=== PATIENT | female | born 1975 | race Caucasian/White ===

== ENCOUNTER 2020-03-24 19:49 | Emergency (ER) | payer SELFPAY | END 2020-03-24 20:31 | disposition left against medical advice (07) | LOC: ER 19:49 | DX: M54.9 Dorsalgia, unspecified (principal); Z53.21 Procedure and treatment not carried out due to patient leaving prior to being seen by health care provider ==

== ENCOUNTER 2020-09-16 12:09 | Emergency (ER) | payer SELFPAY ==
[~2020-09-16] VITALS: Ht 167.6 cm; Wt 95.4 kg
[2020-09-16 13:09] LABS: BILIRUBIN,URINE NEGATIVE (NEG); CLARITY,URINE CLOUDY; COLOR,URINE YELLOW; NITRITE,URINE NEGATIVE (NEG); PROTEIN,URINE NEGATIVE (NEG-TRACE)
--- NOTE | 2020-09-16 13:12 | PHYS DOC ---
General Adult EDM: Chief Complaint: NAUSEA/VOMITING/DIARRHA HPI: HPI: Patient is a 45 year old female who presents with patient's states that at 5:00 this morning he heard her finger up against the wall next to him he rolled over and she was moving her extremities and he went to pull her towards him and she did not respond to wake up. Patient states she has never had a seizure before. Patient claims that her tongue hurts and may have bitten her tongue. Patient states ever since she has had nausea and vomiting. She denies any blood in her vomit. Patient denies fever, abdominal pain, cough, shortness of breath, chest pain, dizziness, headache, syncope, body aches, vision change, focal weakness, numbness or tingling. She states that she does smoke and she does use marijuana. She states she has not recently used any alcohol or taken any other drugs. She denies any other medical history. Patient is vomiting bile in the ED. Rates her tongue pain a 7 out of 10. Review of Systems: Review of Systems: Constitutional: Denies fever or chills. [] Eyes: Denies change in visual acuity. [] HENT: Denies nasal congestion or sore throat. + Tongue pain [] Respiratory: Denies cough or shortness of breath. [] Cardiovascular: Denies chest pain or edema. [] GI: Denies abdominal pain. + nausea, +vomiting, denies bloody stools or diarrhea. [] : Denies dysuria. [] Musculoskeletal: Denies back pain or joint pain. [] Integument: Denies rash. [] Neurologic: Denies headache, focal weakness or sensory changes. + Seizure-like activity [] Endocrine: Denies polyuria or polydipsia. [] Lymphatic: Denies swollen glands. [] Psychiatric: Denies depression or anxiety. [] Heart Score: Risk Factors: Risk Factors: DM, Current or recent (<one month) smoker, HTN, HLP, family history of CAD, obesity. Risk Scores: Score 0 - 3: 2.5% MACE over next 6 weeks - Discharge Home Score 4 - 6: 20.3% MACE over next 6 weeks - Admit for Clinical Observation Score 7 - 10: 72.7% MACE over next 6 weeks - Early Invasive Strategies Allergies: Allergies: Allergies Coded Allergies Type Severity Reaction Last Updated Verified Penicillins Allergy Unknown 09/16/20 Yes Physical Exam: PE: Constitutional: Well developed, well nourished, no acute distress, non-toxic appearance. [] HENT: Normocephalic, atraumatic, bilateral external ears normal, oropharynx moist, no oral exudates, nose normal. Some redness to the tongue but no swelling. No laceration to the tongue. [] Eyes: PERRLA, EOMI, conjunctiva normal, no discharge. [] Neck: Normal range of motion, no tenderness, supple, no stridor. [] Cardiovascular:Heart rate regular rhythm, no murmur [] Lungs & Thorax: Bilateral breath sounds clear to auscultation [] Abdomen: Bowel sounds normal, soft, no tenderness, no masses, no pulsatile masses. [] Skin: Warm, dry, no erythema, no rash. [] Back: No tenderness, no CVA tenderness. [] Extremities: No tenderness, no cyanosis, no clubbing, ROM intact, no edema. [] Neurologic: Alert and oriented X 3, normal motor function, normal sensory fun ction, no focal deficits noted. [] Psychologic: Affect normal, judgement normal, mood normal. [] EKG: EK and read by Dr. Connelly as sinus rhythm and no STEMI [] Radiology/Procedures: Radiology/Procedures: [] Impression: [facility] [address] [facility] [place] [address] IMAGING REPORT Signed PATIENT: OSWALD ORLANDO ACCOUNT: [id number] : 1975 LOCATION: ER AGE: 45 SEX: F EXAM STATUS: PRE ER ORD. PHYSICIAN: TAYLOR CORDOVA APRN REASON: vomiting PROCEDURE: PORTABLE CHEST 1V INDICATION: Reason: vomiting / Spl. Instructions: / History: COMPARISON: None. FINDINGS: Single view of chest obtained. No focal airspace consolidation or pulmonary edema. There are some calcified lymph nodes in the mediastinum which could be from chronic granulomatous disease. No definite focal airspace consolidation or pulmonary edema. IMPRESSION: * No focal airspace consolidation or edema. Electronically signed by: Amaris Spann MD (09/16/2020 1:47 PM) [id number] DICTATED and SIGNED BY: AMARIS SPANN MD DATE: 09/16/20 [id number] [facility] [address] [place] [address] IMAGING REPORT Signed PATIENT: OSWALD ORLANDO ACCOUNT: [id number] : 1975 LOCATION: ER AGE: 45 SEX: F EXAM STATUS: REG ER ORD. PHYSICIAN: TAYLOR CORDOVA APRN REASON: vomiting, FRONTAL HEADACHE, SEIZURE PROCEDURE: CT HEAD WO CONTRAST PQRS Compliance Statement: One or more of the following individualized dose reduction techniques were utilized for this examination: 1. Automated exposure control 2. Adjustment of the mA and/or kV according to patient size 3. Use of iterative reconstruction technique CT HEAD WITHOUT CONTRAST History: Reason: vomiting, FRONTAL HEADACHE, SEIZURE / Spl. Instructions: / History: Comparison: None. Procedure: Axial images are obtained of the head from the skull base through the vertex without IV contrast. Findings: The ventricles and sulci are normal for the patient's age. No mass-effect, midline shift, hemorrhage, extra-axial fluid collection, or obvious acute infarction is identified. Basilar cisterns are patent. Bone windows demonstrate no acute calvarial abnormality. There is moderate mucosal thickening of the bilateral ethmoid sinuses. There is minimal mucosal thickening of the right sphenoid sinus. There is no air-fluid level. Mastoid air cells are well aerated. IMPRESSION: No acute intracranial abnormality. Electronically signed by: Dwight Zaragoza MD (09/16/2020 2:57 PM) [facility] DICTATED and SIGNED BY: DWIGHT ZARAGOZA MD DATE: 09/16/20 [id number] 0 [facility] [address] [place] [address] IMAGING REPORT Signed PATIENT: OSWALD ORLANDO ACCOUNT: [id number] : 1975 LOCATION: ER AGE: 45 SEX: F EXAM STATUS: REG ER ORD. PHYSICIAN: BAFUS,TAYLOR M ARCHITECTURAL ENGINEER REASON: vomiting PROCEDURE: CT ABD PELV W/ IV CONTRST ONLY PQRS Compliance Statement: One or more of the following individualized dose reduction techniques were utilized for this examination: 1. Automated exposure control 2. Adjustment of the mA and/or kV according to patient size 3. Use of iterative reconstruction technique CT ABDOMEN+PELVIS W Clinical Indication: Reason: vomiting / Comparison: None. Technique: Helical CT imaging of the abdomen and pelvis is performed after 75 cc of Omnipaque 300 IV contrast. Oral contrast not administered. Findings: Calcified granulomas right middle lobe. There is no lung base consolidation. The cardiac size is normal. The liver, gallbladder, spleen, pancreas, adrenal glands, and abdominal aorta are normal. There are lobulations of the bilateral kidneys that may be congenital or due to cortical scarring. Kidneys enhance symmetrically, no hydronephrosis. Bifid left collecting system. There is no obvious abnormality of the stomach. There is diastasis of the rectus abdominis muscles inferiorly with protrusion of mesenteric fat and a left of midline fat-containing ventral hernia, image 80. Size of the hernia is approximately 6 cm. There is no dilated small bowel. Appendix not identified, no secondary signs of appendicitis. There is no colon wall thickening. No abdominal adenopathy or free fluid. Urinary bladder is normal. Retroverted uterus. Left adnexal cysts are probably functional cysts of the left ovary, largest measures 4 cm. There is no pelvic free fluid. There is degenerative spondylosis of L5/S1. IMPRESSION: 1. No acute abdominal or pelvic abnormality. 2. There is an infraumbilical fat-containing ventral hernia associated with diastasis of the rectus abdominis muscles. Electronically signed by: Dwight Zaragoza MD (09/16/2020 3:06 PM) [facility] DICTATED and SIGNED BY: DWIGHT ZARAGOZA MD DATE: 09/16/20 [id number] Course & Med Decision Making: Course & Med Decision Making Pertinent Labs and Imaging studies reviewed. (See chart for details) See HPI. The edges of the patient's tongue are slightly reddened as if she may have bitten her tongue. There is no actual laceration of the tongue. Alert and oriented x4. No bruising or extremity deformity or laxities. Ambulatory with a steady gait. PERRLA. Speaks in full complete sentences. Skin pink warm and dry. Abdomen is soft and nontender. CT Head shows sinusitis. CT ABD PELV and Chest xray show no acute findings. Blood work shows no compelling acute findings. Patient is going to be p.o. challenged and walked around department. She has no neurological symptoms since she has been here. She continues to be alert and oriented. 1530: Patient has passed her p.o. challenge. I have spoken to Dr. Washington who states to start the patient on Keppra 500 mg twice daily and she can follow-up with him or his nurse practitioner. He states that the marijuana use could be a precipitating factor. Again patient is stable and has not ever been postictal or having any neurological symptoms. [] Dragon Disclaimer: Dragon Disclaimer: This electronic medical record was generated, in whole or in part, using a voice recognition dictation system. NIHSS Stroke Scale NIH Stroke Scale: NIH Stroke Scale Response (Comments) Value Level of Consciousness: 0 Alert/Responsive 0 LOC Questions: 0 Answers both correctly 0 LOC Commands: 0 Performs both tasks 0 Best Gaze: 0 Normal 0 Visual: 0 No visual loss 0 Facial Palsy: 0 Normal, symmetrical 0 Motor - Left Arm 0 No drift 0 Motor - Right Arm 0 No drift 0 Motor - Left Leg 0 No drift 0 Motor: Right Leg 0 No drift 0 Limb Ataxia: 0 Absent 0 Sensory: 0 No loss 0 Best Language: 0 Normal 0 Dysathria: 0 Normal 0 Extinction and Inattention: 0 Normal 0 Total 0 Departure Departure Impression: Primary Impression: Seizure-like activity Additional Impressions: Nausea & vomiting Qualified Codes: R11.2 - Nausea with vomiting, unspecified Sinusitis Qualified Codes: J01.90 - Acute sinusitis, unspecified Disposition: 01 DC HOME SELF CARE/HOMELESS Condition: STABLE Referrals: NO PCP (PCP) MARIELENA VELASQUEZ MD Patient Instructions: Nausea and Vomiting, Seizure, Adult, Sinusitis Additional Instructions: Follow-up with a primary care doctor or with Dr Velasquez as soon as possible. I would stop smoking marijuana or doing any kind of alcohol use. Take medication as prescribed and with food. If you have another seizure have any worsening of symptoms return to the emergency room. Scripts Azithromycin (AZITHROMYCIN TABLET) 250 Mg Tablet 1 PKG PO UD for 5 Days, #6 TAB 0 Refills 2 the first day followed by 1 for days 2-5 Prov: TAYLOR CORDOVA APRN 09/16/20 Ondansetron (ONDANSETRON ODT) 4 Mg Tab.rapdis 1 TAB PO PRN Q6-8HRS, #16 TAB Prov: TAYLOR CORDOVA APRN 09/16/20 Levetiracetam (KEPPRA) 500 Mg Tablet 1 TAB PO BID for 30 Days, #60 TAB 0 Refills Prov: TAYLOR CORDOVA APRN 09/16/20 TAYLOR CORDOVA APRN Sep 16, 2020 13:12
[2020-09-16 13:14] LABS: BASO % 0 % (0-3); EOS % 0 % (0-3); HEMATOCRIT 40.1 % (36.0-47.0); HEMOGLOBIN 13.4 g/dL (12.0-15.5); LYMPH # 0.7 x10^3/uL (1.0-4.8); LYMPH % 5 % (24-48); MEAN CORPUSCULAR HEMOGLOBIN 31 pg (25-35); MEAN CORPUSCULAR HGB CONC 33 g/dL (31-37); MEAN CORPUSCULAR VOLUME 93 fL (79-100); MONO # 0.7 x10^3/uL (0.0-1.1); MONO % 6 % (0-9); NEUT # 10.7 x10^3/uL (1.8-7.7); NEUT % 88 % (31-73); PLATELET COUNT 188 x10^3/uL (140-400); RED BLOOD COUNT 4.32 x10^6/uL (3.50-5.40); RED CELL DISTRIBUTION WIDTH 13.4 % (11.5-14.5); WHITE BLOOD COUNT 12.1 x10^3/uL (4.0-11.0)
[2020-09-16] MEDS ORDERED: IV NORMAL SALINE 1000ML BAG 1,000 ML IV SCH (13:15)
[2020-09-16] MEDS ORDERED: ONDANSETRON PF 4 MG/2 ML VIAL. IVP ONE (13:15)
[2020-09-16] MEDS ORDERED: FAMOTIDINE 20 MG/2 ML VIAL IVP ONE (13:15)
[2020-09-16 13:17] LABS: AMORPHOUS SEDIMENT,UR PRESENT /HPF
[2020-09-16 13:19] LABS: BACTERIA,URINE 0 /HPF (0-FEW); WBC,URINE 0 /HPF (0-4)
[2020-09-16 13:21] LABS: BARBITURATES NEG (NEG); BENZODIAZEPINES NEG (NEG); CANNABINOIDS POS (NEG); COCAINE NEG (NEG); METHADONE NEG (NEG); OPIATES NEG (NEG); PHENCYCLIDINE NEG (NEG)
[2020-09-16 13:22] LABS: AMPHETAMINE/METHAMPHETAMINE NEG (NEG)
[2020-09-16 13:27] LABS: CALCIUM 8.7 mg/dL (8.5-10.1); CREATININE 0.9 mg/dL (0.6-1.0); GFR 67.7
[2020-09-16 13:33] LABS: ALBUMIN 3.7 g/dL (3.4-5.0); ALBUMIN/GLOBULIN RATIO 1.5 (1.0-1.7); TOTAL BILIRUBIN 0.4 mg/dL (0.2-1.0); TOTAL PROTEIN 6.2 g/dL (6.4-8.2)
[2020-09-16 13:35] LABS: % BANDS 1 % (0-9); % LYMPHS 8 % (24-48); % MONOS 3 % (0-10); % SEGS 88 % (35-66)
[2020-09-16 13:36] LABS: PLT ESTIMATE ADEQUATE (ADEQUATE)
[2020-09-16] MEDS ORDERED: IOHEXOL 300 MG/ML 100ML VIAL. IV ONE (13:45)
[2020-09-16] MEDS ORDERED: CONTRAST GIVEN. MC PRN (13:45)
--- NOTE | 2020-09-16 13:49 | RAD ---
INDICATION: Reason: vomiting / Spl. Instructions: / History: COMPARISON: None. FINDINGS: Single view of chest obtained. No focal airspace consolidation or pulmonary edema. There are some calcified lymph nodes in the media stinum which could be from chronic granulomatous disease. No definite focal airspace consolidation or pulmonary edema. IMPRESSION: * No focal airspace consolidation or edema. Electronically signed by: Russell Dee MD (09/16/2020 1:47 PM) [id number]
[2020-09-16] MEDS ORDERED: IV NORMAL SALINE 1000ML BAG 1,000 ML IV ONE (14:00)
[2020-09-16 14:11] LABS: U PREG PATIENT NEGATIVE (NEG)
--- NOTE | 2020-09-16 14:59 | RAD ---
PQRS Compliance Statement: One or more of the following individualized dose reduction techniques were utilized for this examinat ion: 1. Automated exposure control 2. Adjustment of the mA and/or kV according to patient size 3. Use of iterative reconstruction technique CT HEAD WITHOUT CONTRAST History: Reason: vomiting, FRONTAL HEADACHE, SEIZURE / Spl. Instructions: / History: Comparison: None. Procedure: Axial images are obtained of the head from the skull base through the vertex without IV co ntrast. Findings: The ventricles and sulci are normal for the patient's age. No mass-effect, midline shift, hemorrhage, extra-axial fluid collection, or obvious acute infarction is identified. Basilar cisterns are patent. Bone windows demonstrate no acute calvarial abnormality. There is moderate mucosal thickening of the bilateral ethmoid sinuses. There is minimal mucosal thick ening of the right sphenoid sinus. There is no air-fluid level. Mastoid air cells are well aerated. IMPRESSION: No acute intracranial abnormality. Electronically signed by: Dwight Zaragoza MD (09/16/2020 2:57 PM) [facility]
--- NOTE | 2020-09-16 15:08 | RAD ---
PQRS Compliance Statement: One or more of the following individualized dose reduction techniques were utilized for this examinat ion: 1. Automated exposure control 2. Adjustment of the mA and/or kV according to patient size 3. Use of iterative reconstruction technique CT ABDOMEN+PELVIS W Clinical Indication: Reason: vomiting / Comparison: None. Technique: Helical CT imaging of the abdomen and pelvis is performed after 75 cc of Omnipaque 300 IV contrast. Oral contrast not administered. Findings: Calcified granulomas right middle lobe. There is no lung base consolidation. The cardiac size is norm al. The liver, gallbladder, spleen, pancreas, adrenal glands, and abdominal aorta are normal. There are l obulations of the bilateral kidneys that may be congenital or due to cortical scarring. Kidneys enhan ce symmetrically, no hydronephrosis. Bifid left collecting system. There is no obvious abnormality of the stomach. There is diastasis of the rectus abdominis muscles in feriorly with protrusion of mesenteric fat and a left of midline fat-containing ventral hernia, image 80. Size of the hernia is approximately 6 cm. There is no dilated small bowel. Appendix not identifi ed, no secondary signs of appendicitis. There is no colon wall thickening. No abdominal adenopathy or free fluid. Urinary bladder is normal. Retroverted uterus. Left adnexal cysts are probably functional cysts of th e left ovary, largest measures 4 cm. There is no pelvic free fluid. There is degenerative spondylosis of L5/S1. IMPRESSION: 1. No acute abdominal or pelvic abnormality. 2. There is an infraumbilical fat-containing ventral hernia associated with diastasis of the rectus abdominis muscles. Electronically signed by: Dwight Zaragoza MD (09/16/2020 3:06 PM) [facility]
[2020-09-16 15:30] VITALS: BP 147/90
[2020-09-16] MEDS ORDERED: LEVE500T56 PO (15:57)
[2020-09-16] MEDS ORDERED: AZIT250T6 PO (15:57)
[2020-09-16] MEDS ORDERED: ONDA4TAB12 PO (15:57)
--- NOTE | 2020-09-16 19:21 | EKG ---
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
--- NOTE | 2020-09-19 09:05 | NUR ---
IP: Informed pt of negative COVID test. Pt verbalized understanding.
== END 2020-09-16 16:33 | disposition home or self-care (01) ==
LOC: ER 12:09
DX: R56.9 Unspecified convulsions (principal); Z20.822 Contact with and (suspected) exposure to COVID-19; R11.2 Nausea with vomiting, unspecified; J01.90 Acute sinusitis, unspecified; R51.9 Headache, unspecified; K42.9 Umbilical hernia without obstruction or gangrene; Z88.0 Allergy status to penicillin
CPT/HCPCS: 36415; 70450; 71045; 74177; 80053; 80307; 81001; 81025; 83605; 83690; 84484; 85007; 85025; 93005; 96361; 96374; 96375; 99285; C9803; J2405; J3490; J7030; Q9967; U0003